=== PATIENT | male | born 1950 | race Caucasian/White ===

== ENCOUNTER 2024-11-12 04:54 | Emergency (ER) | payer OTHER, SELFPAY ==
[2024-11-12 04:54] VITALS: BMI 27.0
[2024-11-12 04:57] VITALS: BP 163/88
[2024-11-12 05:16] VITALS: BP 157/85
--- NOTE | 2024-11-12 05:42 | ED.GENMED ---
History of Present Illness
General
Chief Complaint: Dizziness
Source: patient
Exam Limitations: none
Time Seen by Provider: 11/12/24 05:16
History of Present Illness
History of Present Illness:
74-year-old male who presents after he woke up to go to bathroom at 3 AM. He states with the bathroom felt okay was walking back to bed just did not feel himself. He states he felt 'loopy'. States it was not really lightheaded he just did not
feel right. Denies pain. No headache speech changes. States he just did not feel himself. Again describes it as 'loopy'. He states he waited out to see if he would feel better. And then he started to feel little bit worse when he got back up.
Patient states he called 911 but when he got there felt much better. He now feels completely resolved. Patient states that he has felt like this once before many years ago and they never really figured out what caused it. Again, denies chest
pain, shortness of breath, palpitations, motor weakness, headache, fever. He is a diabetic. He states blood sugar was 170
Past History
Past History
ED Past Medical History: GERD and NIDDM
ED Past Surgical History: None
Social History
Tobacco: Non-smoker
Alcohol: None
Living: with family
Employment: Employed
Family History
Family History: Other (Noncontributory.)
Phy Exam
Physical Exam
Physical Exam:
CONSTITUTIONAL Patient alert and oriented to person, place and time. Well-appearing. Vital signs reviewed.
HEAD atraumatic, normocephalic.
EYES eyelids normal to inspection, Extraocular muscles intact, Conjunctiva normal, Sclera normal.
NECK normal range of motion, Trachea midline, no jugular venous distention.
RESPIRATORY CHEST No respiratory distress noted, Chest expansion equal, Bilateral breath sounds clear.
CARDIOVASCULAR regular rate and rhythm, Heart sounds normal.
ABDOMEN abdomen nontender, Bowel sounds normal. No distention.
BACK normal inspection, no obvious deformities
UPPER EXTREMITY range of motion normal, Motor strength normal, no cyanosis, no edema.
LOWER EXTREMITY range of motion normal, Motor strength normal, no cyanosis, no edema.
NEURO Speech normal, No focal motor deficits, Chevy coma scale 15, Memory normal, Cranial Nerves intact to screening exam. No pronator drift. Normal [id number]. Normal [id number].
SKIN skin warm, dry, and normal in color.
Course
Orders/Labs/Results
Orders:
Orders
11/12/24 05:03
EKG [Electrocardiogram (*1)] Urgent
Reason for Study: Vertigo / Dizzy
EKG- Treatment ONCE
11/12/24 05:34
Complete Blood Count/With Diff Urgent
Comprehensive Metabolic Panel Urgent
Abnormal Lab Results
11/12/24
05:34
Monocytes % 9.5 H %
(1.7-9.3)
Chloride 108 H mmol/L
(98-107)
Glucose 162 H mg/dl
(70-99)
11/12/24 05:34
11/12/24 05:34
Vital Signs
Initial and Last Documented VS:
Initial Vital Signs
Temp Pulse Resp BP Pulse Ox
97.7 F 95 16 163/88 97
11/12/24 04:57 11/12/24 04:57 11/12/24 04:57 11/12/24 04:57 11/12/24 04:57
Last Documented Vital Signs
Temp Pulse Resp BP Pulse Ox
97.7 F 86 19 160/88 97
11/12/24 04:57 11/12/24 06:15 11/12/24 06:15 11/12/24 06:00 11/12/24 06:15
MDM/Problems Addressed
Differential Diagnosis Includes:
Arrhythmia, electrolyte disturbance, vasovagal irritation, dehydration
MDM/Problems Addressed:
Near syncope
*Pulse Oximetry
Patient hypoxic: no
*EKG
Interpreted by ED Provider?: Yes
Interpretation: abnormal
Rate: normal
Rhythm: sinus
[place]: normal axis
QRS Pattern: right bundle branch block
Ischemia: no ischemia
*Architectural Project Manager Interpretation
Rate: normal
Interpretation: normal
Rhythm: sinus
*Critical Care Note
Total Time (30-74mins, 75-104mins- exclusive of procedures): Not Applicable
Data Reviewed
Source: patient
Further Testing Considered But Not Given:
Consider head CT but nonfocal exam and no posterior circulation symptoms.
Patient Management
Escalation/DeEscalation of care consider admission/obs:
pt appears well. EKG grossly unremarkable does have right bundle branch block but comparable except for several years ago. Do not suspect it is acute. Patient denies any associated chest pain. He really is a tough time describing his symptoms
but now feels 100% better. Exam is normal. Labs are grossly unremarkable. Question whether he dropped his blood pressure a bit after waking up when going to the bathroom. Okay for outpatient follow-up
ED Attending Note
-
Portions of this chart may have been created with voice recognition software.� Occasional wrong word or��sound alike� substitutions may have occurred due to the inherent limitations of voice recognition software.
Discharge Plan
Departure
Patient Disposition: Home (Routine Discharge)
Date of Disposition: 11/12/24
Time of Disposition: 06:20
Patient with high blood pressure during this ER visit?: Yes
Discharge Problem:
Lightheadedness
Instructions: Dizziness, BLOOD PRESSURE
Activity Restrictions/Additional Instructions:
Please see your doctor in the next 3 to 5 days for follow-up and reevaluation. Return immediately for chest pain, shortness of breath, dizziness, vision changes, motor weakness or any other concerns
Interventions
Interventions:
*Risk Screen - Suicide Last Done: 11/12/24 04:57
*General Assessment Last Done: 11/12/24 05:18
*Neglect/Abuse Screening Last Done: 11/12/24 05:18
*ED- Fall Risk Assessment Last Done: 11/12/24 05:18
*ED COVID-19 Vaccine History Last Done: 11/12/24 05:18
ED- Neurological Assessment Last Done: 11/12/24 05:18
ED Swallowing Screen Last Done: 11/12/24 05:18
Discharge Date and Time
Print Language: JAPANESE
[2024-11-12 06:00] VITALS: BP 160/88
[2024-11-12 06:04] LABS: % Basophils 1.2 % (0-2); % Eosinophils 5.2 % (0-6); % Immature Granulocytes 0.4 % (0-0.5); % Lymphocytes 23.8 % (20.5-51.1); % Monocytes 9.5 % (1.7-9.3); % Neutrophils 59.9 % (42.2-75.2); Absolute Basophils 0.1 10^3/uL (0-0.2); Absolute Eosinophils 0.3 10^3/uL (0-0.7); Absolute Lymphocytes 1.2 10^3/uL (1.2-3.4); Absolute Monocytes 0.5 10^3/uL (0.1-0.6); Hematocrit 42.6 % (39.0-52.0); Hemoglobin 14.9 g/dL (13.0-18.0); Mean Corpuscular Hgb 30.8 pg (27.0-31.0); Mean Corpuscular Volume 88.2 fL (80.0-94.0); Mean Platelet Volume 9.4 fL (7.4-10.4); Nucleated Red Blood Cells % 0 % (-); Platelet Count 150 10^3/uL (130-400); Red Blood Cell Count 4.83 10^6/uL (4.70-6.10); Red Cell Dist. Width 13.4 % (11.5-14.5)
[2024-11-12 06:14] LABS: ALT (SGPT) 27 U/L (0-50); AST (SGOT) 24 U/L (17-59); Albumin 4.3 g/dl (3.5-5.0); Alkaline Phosphatase 57 U/L (38-126); Blood Urea Nitrogen 15 mg/dl (9-20); Carbon Dioxide 25 mmol/L (22-30); Chloride 108 mmol/L (98-107); Estimated Creatinine Clearance 99 ml/min; Glucose 162 mg/dl (70-99); Potassium 4.3 mmol/L (3.5-5.1); Sodium 141 mmol/L (135-145); Total Bilirubin 0.9 mg/dl (0.2-1.3); Total Protein 6.6 g/dl (6.3-8.2); eGFR > 60.00
== END 2024-11-12 06:37 | disposition home or self-care (01) ==
LOC: EMR 04:54
PROVIDERS: EMERGENCY PHYSICIAN Emergency Medicine; FAMILY PHYSICIAN Family Medicine
DX: R42 Dizziness and giddiness (principal); I45.10 Unspecified right bundle-branch block; E11.9 Type 2 diabetes mellitus without complications
CPT/HCPCS: 99284; 80053; 85025; 93005